=== PATIENT | male | born 1985 | race Caucasian/White ===

== ENCOUNTER 2024-04-30 18:41 | Emergency (ER) | payer BC ==
[~2024-04-30] VITALS: Ht 188 cm; Wt 83.1 kg
[2024-04-30 18:56] VITALS: BP 138/95; PULSE 102; RESP 16; TEMP 98.2; O2SAT 99
[2024-04-30] MEDS ORDERED: CETI10SG1 PO (20:49)
[2024-04-30 21:02] VITALS: BP 132/95; PULSE 100; RESP 16; TEMP 98; O2SAT 99
== END 2024-04-30 21:02 | disposition home or self-care (01) ==
LOC: MED 18:41
DX: J30.9 Allergic rhinitis, unspecified (principal); F41.9 Anxiety disorder, unspecified; Z79.899 Other long term (current) drug therapy
CPT/HCPCS: 71045; 99283; Q0092